=== PATIENT | male | born 1985 | race Caucasian/White ===

== ENCOUNTER 2025-08-27 20:04 | Emergency (ER) | payer MEDICAID, SELFPAY ==
[2025-08-27 20:07] VITALS: BP 157/110
[2025-08-27 20:21] VITALS: BP 143/100
--- NOTE | 2025-08-27 20:24 | ED.GENMED ---
History of Present Illness
General
Chief Complaint: Cardiac Symptoms
Time Seen by Provider: 08/27/25 20:24
History of Present Illness
History of Present Illness:
FOCUSED PAST MEDICAL HISTORY
- Bipolar
REVIEW OF OLD RECORDS
- I reviewed records, the patient was seen here in 2013 related to psych evaluation and history of bipolar disorder and had pressured speech at that time
Note:
CHIEF COMPLAINT(S)
Anxiety attack, history of transient ischemic attack-like symptoms, and recent feelings resembling a heart attack.
HISTORY OF PRESENT ILLNESS
The patient is a 39-year-old male presenting with symptoms suggestive of an anxiety attack. He reports a history of similar episodes, previously resembling strokes and seizures, with one incident diagnosed as Adel palsy. A few months prior, he
experienced a transient ischemic attack-like episode characterized by confusion and difficulty performing daily tasks. Recently, he experienced symptoms mimicking a heart attack, describing chest pressure and difficulty breathing. The patient also
reported visual disturbances during the episode. These symptoms prompted emergency evaluation.
The patient�s blood pressure was noted to be elevated at 143 mmHg systolic at presentation. He denied taking any antihypertensive medications or medications such as lisinopril, amlodipine, or losartan.
To further evaluate the symptoms, a CT scan of the brain and cardiac blood work were ordered. Initial electrocardiogram findings did not indicate an acute myocardial infarction requiring emergency intervention.
PAST MEDICAL HISTORY
- Adel Palsy
- Episodes resembling transient ischemic attacks
SOCIAL HISTORY
The patient uses prescription medications, including Clonazepam and Gabapentin, regularly. He last took Clonazepam just before symptoms onset, typically taking a dosage of 1 mg, sometimes halving it.
MEDICATIONS
- Clonazepam 1 mg, taken regularly with occasional halving
- Gabapentin
PHYSICAL EXAM
General: Alert, no acute distress.
Skin: Warm, dry.
Head: Normocephalic, atraumatic.
Neck: Supple, trachea midline.
Eyes, Ears, Nose, Mouth, and Throat: Oral mucosa moist.
Cardiovascular: Normal peripheral perfusion, No edema.
Respiratory: Respirations are non-labored.
Gastrointestinal: Abdomen nondistended.
Back: Normal range of motion, Normal alignment.
Musculoskeletal: Normal range of motion, normal strength.
Neurological: Alert and oriented to person, place, time, and situation, No focal neurological deficit observed.
Psychiatric: Cooperative, appropriate mood & affect.
PROBLEM LIST
Acute:
- Anxiety attack
- Chest pressure with difficulty breathing
Chronic:
- History of Adel Palsy
- Recurrent episodes resembling transient ischemic attacks
PLAN
- Obtain CT scan of the brain to assess for acute neurological events.
- Conduct cardiac blood work to rule out myocardial infarction.
- Close monitoring of blood pressure readings with a recommendation to discuss possible management with primary care.
- Follow-up discussion with the patient after test results.
DIFFERENTIAL DIAGNOSIS
The Differential Diagnosis includes, in no particular order and is not limited to:
1. Transient ischemic attack
2. Panic disorder
3. Acute coronary syndrome
4. Stroke
5. Myocarditis
6. Pericarditis
7. Pulmonary embolism
8. Hyperventilation syndrome
9. Migraine with aura
10. Anxiety disorder
Disposition:
SUMMARY OF ENCOUNTER
The patient, a 39-year-old male, presented to the emergency department with symptoms suggestive of an anxiety attack. The patient reported a history of similar episodes and recent symptoms mimicking a heart attack. In the emergency department, a CT
scan of the brain and cardiac blood work were performed. The CT scan showed no signs of bleeding, tumors, or indications of a stroke. Cardiac evaluation, including EKG, was unremarkable and did not indicate any emergent cardiovascular concerns. The
patient discussed housing instability, bouncing from hotel to hotel, and concerns about insurance and financial services agent, which were factors influencing his social situation. Despite a history of bipolar disorder, the patient did not express suicidal ideation
at the time of evaluation. The emergency department assessed him medically stable for discharge.
DISPOSITION
Discharge
ASSESSMENT
The patients symptoms were consistent with an anxiety attack rather than an acute medical emergency, with no evidence of myocardial infarction or stroke. Social concerns related to housing and financial instability were identified.
PLAN
- Discharge from the emergency department as there are no acute medical concerns.
- Follow-up with primary care for management of chronic conditions, including any further evaluation of mental health concerns.
- Consideration for administrator social welfare or assistance to address housing instability if resources become available.
INDEPENDENT REVIEW OF LABS AND INTERPRETATION OF TESTS
- My independent review of the CT scan of the brain is normal, with no signs of acute neurological events such as stroke or tumors.
PATIENT EDUCATION AND COUNSELING
The patient was informed that from a medical standpoint, there are no immediate alarms based on the tests conducted. The patient was advised of the availability of shelters and administrator social welfare for housing assistance. The patient was also advised to
pursue mental health support if needed.
MEDICAL DECISION MAKING
1. Number and Complexity of Problems Addressed: Chronic conditions affecting care include a history of Adel Palsy and episodes resembling transient ischemic attacks with present acute anxiety attack. Considered differential diagnoses include
transient ischemic attack, panic disorder, acute coronary syndrome, stroke, myocarditis, pericarditis, pulmonary embolism, hyperventilation syndrome, migraine with aura, anxiety disorder.
2. Data:
Category 1
- Non-emergency department records reviewed included the patients medication use of clonazepam and gabapentin, contributing to the understanding of his current presentation.
Category 2
- My independent review of the EKG shows no signs of acute myocardial infarction.
3. Risk:
- Consideration of Admission/Observation: Escalation of care including admission/observation was considered given the complexity and risk of the patients presenting complaint and underlying comorbidities. However, ultimately it was determined the
patient is safe for outpatient management with close follow-up. Reasoning: Work-up reassuring, symptoms well controlled upon reevaluation, stable vitals, and the patient is cooperative with discharge and reliable for follow-up.
DIAGNOSIS
- Chest pain
- Headache
- Housing instability (Z59.0)
- Bipolar disorder, without mention of current episode or symptoms (ICD-10: F31.9)
RADIOLOGY
- CAT scan of the brain shows no acute abnormality
EKG
- Sinus 76, left axis deviation, nonspecific ST abnormality
LABS
- Basic labs including troponin unremarkable
UPDATE
- Initially came when with various medical complaints with unremarkable ED workup
- At time of discharge he tells me that his father wanted him to see crisis
- I spoke to crisis and asked for consult
- Patient states he has no place to go but states that he [employer] here and has credit card availability
- He told me thatthere are no hotels in the area however I did do a quick search and there are numerous rooms available
Past History
Past History
ED Past Medical History: Psychiatric (Bipolar)
ED Past Surgical History: None
Social History
Tobacco: Smoker
Alcohol: None
Drug: Other
Personal: Single
Living: with family
Employment: Employed
Family History
Family History: Other (Noncontributory)
Phy Exam
Physical Exam
Physical Exam:
See HPI
Course
Orders/Labs/Results
Orders:
Orders
08/27/25 20:09
ECG [Electrocardiogram (*1)] Urgent
Reason for Study: Chest Pain
EKG- Treatment ONCE
08/27/25 20:37
CT Head W/o Iv Contrast Urgent
Comment:
Reason For Exam: ESCOBEDO vision change
08/27/25 20:44
Complete Blood Count/With Diff Urgent
Comprehensive Metabolic Panel Urgent
Troponin I Urgent
08/27/25 21:59
Crisis Consult Urgent
Reason for Consult: psych eval
Abnormal Lab Results
08/27/25
20:44
BUN 8 L mg/dl
(06-08)
08/27/25 20:44
08/27/25 20:44
Vital Signs
Initial and Last Documented VS:
Initial Vital Signs
Temp Pulse Resp BP Pulse Ox
36.8 C 87 20 157/110 97
08/27/25 20:07 08/27/25 20:07 08/27/25 20:07 08/27/25 20:07 08/27/25 20:07
Last Documented Vital Signs
Temp Pulse Resp BP Pulse Ox
36.8 C 75 23 143/100 99
08/27/25 20:07 08/27/25 20:45 08/27/25 20:45 08/27/25 20:21 08/27/25 20:45
*Pulse Oximetry
SaO2: 97
Oxygen Mode of Delivery: Room air
Patient hypoxic: no
*Critical Care Note
Total Time (30-74mins, 75-104mins- exclusive of procedures): Not Applicable
ED Attending Note
-
Portions of this chart may have been created with voice recognition software.� Occasional wrong word or��sound alike� substitutions may have occurred due to the inherent limitations of voice recognition software.
Discharge Plan
Departure
Patient Disposition: Home (Routine Discharge)
Date of Disposition: 08/27/25
Time of Disposition: 22:31
Patient with high blood pressure during this ER visit?: Yes
Discharge Problem:
Chest pain
Instructions: Chest Pain (DC), BLOOD PRESSURE
Prescriptions:
No Action
dextroamphetamine-amphetamine 30 MG tablet
30 mg PO DAILY
paroxetine HCl [Paxil] 40 MG tablet
40 mg PO DAILY
aripiprazole 15 MG tablet
15 mg PO HS
tramadol 50 MG tablet
50 mg PO Q6HPRN PRN (Reason: pain) Qty: 12 0RF
penicillin V potassium 500 MG tablet
500 mg PO Q6 Qty: 40 0RF
Referrals:
NONE,* [Family Provider, Internal Medicine]
Activity Restrictions/Additional Instructions:
Follow-up as recommended by Cindy as well. Return if worse or other concerns.
Interventions
Interventions:
*Risk Screen - Suicide Last Done: 08/27/25 20:36
*General Assessment Last Done: 08/27/25 20:07
*Neglect/Abuse Screening Last Done: 08/27/25 20:36
*ED COVID-19 Vaccine History Last Done: 08/27/25 20:36
*ED Influenza Vaccine History Last Done: 08/27/25 20:36
[facility] Fall Risk Assessment Tool Last Done: 08/27/25 20:36
*Nursing Disposition Last Done: 08/27/25 22:50
ED- Pulmonary Assessment Last Done: 08/27/25 20:38
ED- Cardiac Assessment Last Done: 08/27/25 20:38
Discharge Date and Time
Discharge Date/Time: 08/27/25 23:45
Print Language: AZERI
[2025-08-27 20:35] VITALS: BMI 28.9
[2025-08-27 20:57] LABS: Hematocrit 45.1 % (39.0-52.0); Hemoglobin 15.0 g/dL (13.0-18.0); Mean Corp Hgb Conc. 33.3 g/dL (33.0-37.0); Mean Corpuscular Volume 91.7 fL (80.0-94.0); Nucleated Red Blood Cells % 0 % (-); Platelet Count 284 10^3/uL (130-400); Red Cell Dist. Width 12.5 % (11.5-14.5)
[2025-08-27 21:11] LABS: ALT (SGPT) 28 U/L (0-50); AST (SGOT) 24 U/L (17-59); Albumin 4.7 g/dl (3.5-5.0); Alkaline Phosphatase 52 U/L (38-126); Blood Urea Nitrogen 8 mg/dl (9-20); Calcium 9.3 mg/dl (8.4-10.2); Carbon Dioxide 29 mmol/L (22-30); Chloride 102 mmol/L (98-107); Estimated Creatinine Clearance 111 ml/min; Glucose 96 mg/dl (70-99); Potassium 4.1 mmol/L (3.5-5.1); Sodium 137 mmol/L (135-145); Total Protein 7.6 g/dl (6.3-8.2); eGFR > 60.00
[2025-08-27 21:16] LABS: Troponin I < 0.012 ng/ml
== END 2025-08-27 23:45 | disposition home or self-care (01) ==
LOC: EMR 20:04
PROVIDERS: EMERGENCY PHYSICIAN Emergency Medicine
DX: R07.9 Chest pain, unspecified (principal); F41.9 Anxiety disorder, unspecified; F17.200 Nicotine dependence, unspecified, uncomplicated; Z59.819 Housing instability, housed unspecified; Z59.869 Financial insecurity, unspecified
CPT/HCPCS: 99284; 70450; 80053; 84484; 85025; 93005